=== PATIENT | female | born 1955 | race Caucasian/White ===

== ENCOUNTER 2018-02-04 11:42 | Emergency (ER) | payer BC, MEDICARE ==
--- OUTSIDE RECORDS SUMMARY | 2018-02-04 11:48 | XMS REPORT ---
:1955 External Reference #:[id number] Author Organization [facility] Address [address] [place] [address] Phone [phone] Care Team Providers Name Role Phone Solomon Kohli M.D. Primary Care Physician Unavailable Payers Type Date Identification Numbers Payment Provider Subscriber Commercial Policy Number: [id number] BS [employer] Madeline Tay PayID: [id number] [address] [address] [place] [address] Problems Date Description Provider Status Onset: Rheumatoid arthritis Active Onset: Anxiety Active Onset: Mild depression Active Onset: Herpes simplex Active Onset: 04/03/2015 Taking medication Robina Kapoor O.D. Active Onset: 04/03/2015 Nuclear senile cataract Robina Kapoor O.D. Active Onset: 04/03/2015 Corneal endothelial dystrophy Robina Kapoor O.D. Active Onset: 04/03/2015 Vitreous degeneration Robina Kapoor O.D. Active Onset: 04/03/2015 Myopia Robina Kapoor O.D. Active Onset: 04/03/2015 Presbyopia Robina Kapoor O.D. Active Onset: 10/16/2015 Combined form of senile cataract Ac Gallego M.D. Active Onset: 10/16/2015 Corneal opacity Ac Gallego M.D. Active Onset: 10/16/2015 Tear film insufficiency Ac Gallego M.D. Active Family History Date Family Member(s) Problem(s) Comments Father No Current Problems Mother Cataract Mother Fuchs' corneal dystrophy Mother Macular Degeneration First Brother Fuchs' corneal dystrophy Uncle Fuchs' corneal dystrophy maternal x 2 Aunt Macular Degeneration Social History Type Date Description Comments Marital Status Legal Status: Work Status Disabled ETOH Use Denies alcohol use Smoking Patient has never smoked Recreational Drug Use Denies Drug Use Daily Caffeine Consumes on average 1 cup of regular coffee per day Allergies, Adverse Reactions, Alerts Date Description Reaction Status Severity Comments 06/29/2017 Sulfa active 04/03/2015 NKDA inactive Medications Medication Date Status Form Strength Qnty SIG Indications Ordering Provider Systane Nighttime 02/06 Active Ointment every night Tello Gallego Systane 02/06 Active Solution 0.4-0.3% 4 x day Lashonda ELIZALDE more if M.D. needed Hydroxychloroquine 00 Active Tablets 200mg 1 PO Endo, Sulfate /0000 bid Tello Buchanan Warfarin Sodium Active Tablets 5mg Midura, /0000 Solomon Javed Valacyclovir HCL Active Tablets 1gm Midura, /0000 Solomon Javed Ventolin HFA Active Aerosol 108(90Bas Unknown /0000 e) mcg/Act Folic Acid Active Tablets 1mg Unknown /0000 Alrex 04/02 Hx Suspension 0.2% as Robina /2014 needed Neeru Kapoor, - O.D. 02/06 Liyah 128 04/02 Hx Ointment 5% both eyes Neeru Kapoor, - every O.D. 02/06 /2015 Refresh 04/02 Hx Solution 1.4-0.6% both Robina eyes Neeru Kapoor, - every O.D. /2015 Symbicort Hx Aerosol 160-4.5mc Midura, /0000 g/Act Solomon Javed - 10/15 Results Description No Information Procedures Date CPT Code Description Status 06/29/2017 57708 Scanning Computerized Ophthalmic Diagnostic Imaging, Completed Anterior 06/29/2017 71966 Est Patient Comprehensive Exam Completed 12/25/2016 50370 Scanning Computerized Opthalmic Diagnostic Posterior Completed Seg Retina 12/25/2016 44918 Determination Of Refractive State Completed 12/25/2016 34674 Est Patient Comprehensive Exam Completed 12/25/2016 00708 Pachymetry Completed 12/18/2016 08712 Visual Field Exam Extended Completed 02/08/2016 83936 Est Patient Intermediate Exam Completed 10/16/2015 12308 Scanning Computerized Opthalmic Diagnostic Posterior Completed Seg Retina 10/16/2015 59930 Est Patient Comprehensive Exam Completed 10/15/2015 67757 Visual Field Exam Extended Completed 04/03/2015 88613 Visual Field Exam Extended Completed 04/03/2015 52692 Est Patient Comprehensive Exam Completed 09/26/2014 55043 Est Patient Comprehensive Exam Completed 03/28/2014 84777 Est Patient Intermediate Exam Completed 03/28/2014 77152 Visual Field Exam Extended Completed 09/27/2013 52238 Est Patient Comprehensive Exam Completed 04/05/2013 34582 Visual Field Exam Extended Completed 01/03/2013 16215 Visual Field Exam Extended Completed 01/03/2013 86914 Est Patient Comprehensive Exam Completed 12/21/2012 89389 Est Patient Intermediate Exam Completed 07/05/2012 85959 Determination Of Refractive State Completed 07/05/2012 60460 Est Patient Comprehensive Exam Completed 10/31/2011 93870 Contact Lens For Treatment Of Ocular Surface Disease Completed 10/31/2011 03244 Est Patient Intermediate Exam Completed 04/28/2011 91604 Contact Lens Fitting For [place] Of Disease (Bandage) Completed 04/28/2011 39251 Est Patient Intermediate Exam Completed 12/26/2010 21780 Determination Of Refractive State Completed 12/11/2010 54508 Est Patient Comprehensive Exam Completed 12/08/2008 46449 Determination Of Refractive State Completed 12/08/2008 98178 New Patient Comprehensive Exam Completed Encounters Type Date Location Provider CPT E/M Dx Office Visit 04/05/2013 2:00p Ac Gallego MD, Robina Kapoor, 78385 V58.69 pc O.DCedric 714.0 Office Visit 11/03/2011 12:00p Ac Gallego MD, Robina Kapoor O.D. 43525 371.42 pc Office Visit 07/03/2011 2:00p Ac Gallego MD, Robina Kapoor O.D. 23353 371.57 pc Office Visit 04/30/2011 8:00a Ac Gallego MD, Robina Kapoor O.D. 74834 371.42 pc Office Visit 12/26/2010 10:30a Ac Gallego MD, Robina Kapoor O.D. 39045 371.57 pc Office Visit 04/17/2010 2:30p Ac Gallego MD, Varun Miller M.D. 88072 372.72 Plan of Care 01/29/2018 - Ac Gallego M.D.Z79.899 Other intermediate project manager (current) drug therapyComments:Smoking can increase the risk of developing or worsening any eye related disease, as well as affect your overall health. If you are a smoker , we strongly recommend that you quit.If you are not a smoker, we strongly recommend that you do not start. Some of the medications you are on have the potential to cause damage to your retinas. Depending on the length of time that you have been taking the medication, Dr. Gallego may monitor you annually or bi-annually. Dr. Gallego may also order a Visual Field test or an Optical Coherence Tomography test to monitor your retinas. Dr. Gallego has sent a report toyour primary care doctor, letting them know the current status of your retinas.M06.9 Rheumatoid arthritis, [id number] Combined forms of age- related cataract, bilateralComments:You have been diagnosed with cataracts. If you are happy with your vision as it is now, then we willsee you at your next scheduled appointment. If you feel like your vision is getting worse before your scheduled appointment, please call Cynthia or Tena at [phone].Follow up:6 Month Follow Up Diagnostic Refraction You can expect to have your eyes dilated at your next visit. If Dr. Gallego orders any additional testing, it may require extra time. We recommend that you bring sunglasses, as dilation drops often make you light sensitive until they wear off. We always recommendyou bring someone to drive you home if you are uncomfortable driving with your eyes dilated. If you have any questions before your next visit, feel free to call our office at .H17.89 Other corneal scars and opacities
[2018-02-04 12:01] VITALS: BP 131/74
--- NOTE | 2018-02-04 12:51 | ED ---
HPI Febrile Illness - HPI Summary HPI Summary: 63 yo WM h/o asthma c/o worsening cough/wheezing/f/c/bodyaches x 3 days - History of Current Complaint Chief Complaint: UCGeneralIllness Time Seen by Provider: 02/04/18 11:50 Hx Obtained From: Patient Timing: Lasting Days Initial Severity: Moderate Current Severity: Moderate Pain Intensity: 4 Aggravating Factors: Nothing Alleviating Factors: Nothing Associated Signs and Symptoms: Chills, Cough, Myalgia, SOB - Allergy/Home Medications Allergies/Adverse Reactions: Allergies Allergy/AdvReac Type Severity Reaction Status Date / Time MS Pollen Extract Allergy Eyes Verified 07/11/15 16:18 [Pollen Extract] Itchy/Swollen/Red/Watery PMH/Surg Hx/FS Hx/Imm Hx Endocrine/Hematology History: Denies: Hx Diabetes Cardiovascular History: Denies: Hx Hypertension, Hx Pacemaker/ICD History: Denies: Hx Dialysis, Hx Renal Disease Musculoskeletal History: Denies: Hx Scoliosis Sensory History: Denies: Hx Hearing Aid Neurological History: Reports: Hx Headaches - WITH NAUSEA Denies: Other Neuro Impairments/Disorders Psychiatric History: Denies: Hx Panic Disorder - Cancer History Hx Chemotherapy: No Hx Radiation Therapy: No - Surgical History Surgery Procedure, Year, and Place: BILATERAL CONREA; WISDOM TEETH, BLOOD CLOT REMOVED FROM RIGHT FEMORAL ARTERY Infectious Disease History: No Infectious Disease History: Denies: Traveled Outside the [place] in Last 30 Days - Social History Alcohol Use: Rare Substance Use Type: Reports: None Smoking Status (MU): Never Smoked Tobacco Review of Systems Positive: Fever, Chills, Fatigue Eyes: Negative ENT: Negative Cardiovascular: Negative Positive: Shortness Of Breath, Cough Gastrointestinal: Negative Genitourinary: Negative Musculoskeletal: Negative Skin: Negative All Other Systems Reviewed And Are Negative: Yes Physical Exam Triage Information Reviewed: Yes Vital Signs On Initial Exam: Initial Vitals Temp Pulse Resp BP Pulse Ox 37.3 C 98 18 131/74 98 02/04/18 11:58 02/04/18 11:58 02/04/18 11:58 02/04/18 11:58 02/04/18 11:58 Vital Signs Reviewed: Yes Appearance: Positive: Ill-Appearing Skin: Positive: Warm Eyes: Positive: Normal ENT: Positive: Normal ENT inspection Neck: Positive: Supple Respiratory/Lung Sounds: Positive: Rhonchi, Wheezes Cardiovascular: Positive: Normal, RRR Abdomen Description: Positive: Nontender Bowel Sounds: Positive: Present Musculoskeletal: Positive: Normal Neurological: Positive: Normal Diagnostics - Vital Signs Vital Signs Temp Pulse Resp BP Pulse Ox 02/04/18 11:58 37.3 C 98 18 131/74 98 - Laboratory Lab Statement: Any lab studies that have been ordered have been reviewed, and results considered in the medical decision making process. Course/Dx - Course Course Of Treatment: clinically pt has flu-like sx and superimposed bronchitis - Diagnoses Provider Diagnoses: Flu-like symptoms, Asthma exacerbation, Acute bronchitis Discharge - Sign-Out/Discharge Documenting (check all that apply): Discharge/Admit/Transfer - Discharge Plan Condition: Stable Disposition: HOME Prescriptions: Levofloxacin TAB* [Levaquin TAB*] 500 mg PO DAILY 7 Days #7 tab Oseltamivir Phosphate [Tamiflu] 75 mg PO BID 5 Days #10 capsule Patient Education Materials: Acute Bronchitis (ED), Viral Syndrome (ED) Referrals: Solomon Kohli MD [Primary Care Provider] - - Billing Disposition and Condition Condition: STABLE Disposition: HOME
== END 2018-02-04 12:50 | disposition home or self-care (01) ==
LOC: UCEAST 11:42
DX: J11.1 Influenza due to unidentified influenza virus with other respiratory manifestations (principal); J45.901 Unspecified asthma with (acute) exacerbation
CPT/HCPCS: 99211; G0463